=== PATIENT | male | born 1980 | race Caucasian/White ===

== ENCOUNTER 2016-12-17 16:05 | Observation (INO) | payer OTHER ==
[~2016-12-17] VITALS: Ht 180.3 cm; Wt 86.2 kg
[2016-12-17] MEDS ORDERED: SODIUM CHLORIDE 0.9% 1,000 ML IVB ONE (17:36)
[2016-12-17] MEDS ORDERED: OXY5T PO (17:38)
[2016-12-17] MEDS ORDERED: QUET100T46 PO (17:38)
[2016-12-17] MEDS ORDERED: HYDR50CA2 PO (17:39)
[2016-12-17] MEDS ORDERED: PROM25TA5 PO (17:39)
[2016-12-17 18:23] LABS: Basophils # (auto) 0.1 uL; Basophils % (auto) 0.8 % (0.0-2.0); Eosinophils # (auto) 0.1 uL; Eosinophils % (auto) 1.2 % (0.0-7.0); Hematocrit 34.8 % (41.0-53.0); Hemoglobin 11.7 g/dL (13.5-17.5); Lymphocytes # (auto) 1.8 uL; Lymphocytes % (auto) 26.6 % (10.0-50.0); Mean Corpuscular Hemoglobin 29.2 pg (28.0-32.0); Mean Corpuscular Hgb Conc. 33.7 g/dL (32.0-36.0); Mean Corpuscular Volume 86.8 fL (80.0-100.0); Mean Platelet Volume 7.7 fL (7.4-10.4); Monocytes # (auto) 0.6 uL; Monocytes % (auto) 8.1 % (0.0-12.0); Neutrophils # (auto) 4.3 uL; Neutrophils % (auto) 63.3 % (37.0-80.0); Platelet Count (auto) 488 10^3/uL (140-450); Red Cell Distribution Width 13.6 % (11.6-16.0); White Blood Cell 6.8 10^3/uL (4.4-10.8)
[2016-12-17] MEDS ORDERED: AZITHROMYCIN 500MG/D5W 250ML 250 ML IV ONE (18:30)
[2016-12-17] MEDS ORDERED: cefTRIAXone 1GM/50ML D5W 50 ML IV ONE (18:30)
[2016-12-17 18:39] LABS: INR 0.96 (0.9-1.15); Prothrombin Time 10.5 sec (9.37-12.3)
[2016-12-17 18:41] LABS: Lactic Acid w/Reflex 2.3 mmol/L (0.4-2.0); REFLEX LACTIC ACID YES OR NO YES
[2016-12-17 18:44] LABS: Alkaline Phosphatase 65 U/L (45-117); Anion Gap 9 (5-15); Aspartate Aminotransferase 12 U/L (15-37); BUN/Creatinine Ratio 11.8; Bilirubin, Total 0.2 mg/dL (0.2-1.0); Blood Urea Nitrogen 11 mg/dL (7-18); Calcium 8.3 mg/dL (8.5-10.1); Carbon Dioxide 24 mmol/L (21-32); Chloride 110 mmol/L (98-107); GFR African American 120 mL/min; GFR Non-African American 99 mL/min; Glucose 105 mg/dL (74-106); Magnesium 2.4 mg/dL (1.6-2.6); Potassium 4.3 mmol/L (3.5-5.1); Sodium 143 mmol/L (136-145); Total Protein 6.7 g/dL (6.4-8.2)
[2016-12-17 19:06] LABS: B-Type Natriuretic Peptide 37.3 pg/mL (0-100)
[2016-12-17 19:38] LABS: Temperature: 23.7 C (20.0-25.0)
[2016-12-17] MEDS ORDERED: ENOXAPARIN SOD 100 MG/1 ML SYRINGE SC ONE (20:00)
[2016-12-17] MEDS ORDERED: SODIUM CHLORIDE 0.9% 1,000 ML IV ONE ×2 (20:00)
[2016-12-17] MEDS ORDERED: IOHEXOL 350 MG/ML 100ML IJ ONE (21:21)
[2016-12-18] MEDS ORDERED: HEPARIN SODIUM (PORCINE) 5000 UNITS/ML 1ML VIAL ONE (00:45)
[2016-12-18] MEDS ORDERED: HEPARIN SODIUM (PORCINE) 5000 UNITS/ML 1ML VIAL IV ONE (00:45)
[2016-12-18 03:32] VITALS: BP 125/65
== END 2016-12-18 03:40 | disposition short-term general hospital (02) | DRG 871 ==
LOC: EDBD 16:05 → ER 16:05 → OVERFLOW 17:38 → ER 12-18 03:40
PROVIDERS: ADMIT Family Medicine; ATTEND Family Medicine
DX: A41.9 Sepsis, unspecified organism (principal); G93.41 Metabolic encephalopathy; J84.9 Interstitial pulmonary disease, unspecified; E86.0 Dehydration; Z86.711 Personal history of pulmonary embolism; Z91.010 Allergy to peanuts; Z79.899 Other long term (current) drug therapy
CPT/HCPCS: 36415; 70450; 71020; 71275; 80053; 80320; 82550; 82962; 83605; 83735; 83880; 84484; 85025; 85379; 85610; 85730; 87040; 93970; 96361; 96365; 96366; 96368; 99285; G0378; J0456; J0696; J1644; J1650; J7030; Q9967; 93005